=== PATIENT | male | born 1965 | race Caucasian/White ===

== ENCOUNTER → 2018-07-04 | Outpatient (CLI) | payer OTHER ==
--- NOTE | 2018-07-05 10:47 | XR ---
Left knee HISTORY: Trauma and pain 3 views of the left knee correlated to prior exam 03/14/2016 Bone mineralization, joint spaces and alignment are stable. Suprapatellar joint effusion may be prese nt. IMPRESSION: No fracture or dislocation is evident. Knee MRI may be of benefit.
== END | disposition home or self-care (01) ==
LOC: RADXRYALE 08:30
PROVIDERS: ATTEND Physician Assistant Medical
DX: M25.562 Pain in left knee (principal)
CPT/HCPCS: 72110

== ENCOUNTER → 2019-07-09 | Outpatient (CLI) | payer OTHER ==
--- NOTE | 2019-07-09 14:04 | XR ---
Sacrum and coccyx HISTORY: Trauma and pain 3 views of the sacrum and coccyx Degenerative disc changes are noted in the lumbosacral junction. There is overlying artifact present. Surgical roxy present in the left hemipelvis. Alignment is maintained. Transitional vertebral bod y is sacralized appearance noted at the lumbosacral junction. IMPRESSION: No acute fracture or subluxation. Degenerative disc disease and additional findings above . Bone scan or MRI may be of increased sensitivity. Follow-up as indicated.
== END | disposition home or self-care (01) ==
LOC: RADXRYALE 11:26
PROVIDERS: ATTEND Family Medicine
DX: M53.3 Sacrococcygeal disorders, not elsewhere classified (principal)
CPT/HCPCS: 72220

== ENCOUNTER → 2019-12-25 | Outpatient (CLI) | payer OTHER ==
--- NOTE | 2019-12-25 22:36 | MR ---
EXAMINATION TYPE: MR knee RT wo con DATE OF EXAM: 12/25/2019 COMPARISON: NONE HISTORY: Rt knee pain/medial x 1 year, no trauma TECHNIQUE: Multiplanar, multisequence images of the knee is performed without IV contrast. FINDINGS: MEDIAL MENISCUS: Anterior horn is intact without tear. Posterior horn has abnormal signal with obliqu e and vertical component extending to superior and inferior articular surface sagittal image 7. LATERAL MENISCUS: Anterior and posterior horns are intact without tear. CRUCIATE LIGAMENTS: The anterior and posterior cruciate ligaments are intact and unremarkable. COLLATERAL LIGAMENTS: The medial collateral ligament and lateral collateral ligament complex are inta ct and unremarkable. EXTENSOR MECHANISM: Visualized quadriceps and patellar tendons are intact. EFFUSION: Small to tiny suprapatellar joint effusion. POPLITEAL CYST: Small to moderate sized popliteal/shane cyst at 5.4 cm long axis sagittal image 8. TRICOMPARTMENT SPACES: Mild to moderate tricompartment joint space loss and spurring. CARTILAGE: Some cartilaginous loss medial tibiofemoral compartment. No significant chondromalacia pat yuri. BONE MARROW SIGNAL: No focal abnormal marrow signal is appreciated. OTHER: No additional significant abnormality is appreciated. IMPRESSION: 1. Full-thickness tear posterior horn of medial meniscus with prominent vertical component. 2. Mild to moderate tricompartment degenerative changes as detailed above. 3. [id number] size popliteal cyst.
== END | disposition home or self-care (01) ==
LOC: RADMRIMAIN 19:53
PROVIDERS: ATTEND Physician Assistant
DX: S83.241A Other tear of medial meniscus, current injury, right knee, initial encounter (principal); M17.11 Unilateral primary osteoarthritis, right knee